=== PATIENT | female | born 1965 | race Caucasian/White ===

== ENCOUNTER → 2016-08-29 | Outpatient (CLI) | payer OTHER ==
--- NOTE | ~2016-08-29 | ECH ---
Transthoracic Echocardiography Report (TTE) Demographics Patient Name JOSEFA MONTES Date of Study 08/29/2016 Patient Number [id number] Visit Number [id number] Date of 1965 Room Number Accession Number [id number] Gender Female Age 50 year(s) Referring Shima David Story Analyst [place]ena Jeffery Physician RDCS Physician Interpreting Swathi GRAY Sampler Tester Physician [place] Supervising Ordering Physician Shima David MD, MD/MLP Nurse Stress Thermoplastic Technician Conclusions Contractility Score Summary Normal Left Ventricular contractility was noted. Summary Technically good exam. The estimated left ventricular ejection fraction is 60-65%. The left atrium is moderately dilated by LA volume index measurement. Informed consent was obtained, bubble study was done, there is no evidence for a PFO or ASD. The right atrium is mildly dilated. Trivial mitral regurgitation by color Doppler. No definitive evidence of mitral valve prolapse. Recommendation The patient will be given the results of this study by the physician who ordered the exam. Procedure Type of Study TTE procedure:Echo Complete SF. Procedure Date Date: 08/29/2016 Start: 12:57 PM Technical Quality: Good visualization Indications:Irregular Heartbeat. Additional Indications:MVP and visual disturbance per patient Appropriate Use Criteria: 9 Height: 66 inches Weight: 185 pounds BSA: 1.93 m Rhythm: Irregular HR: 56 bpm BP: 120/60 mmHg M-Mode/2D Measurements LV Diastolic Dimension: 4.97 cm LV Systolic Dimension: 3.41 cm LV Septum Diastolic: 0.6 cm LV PW Diastolic: 0.67 cm AO Root Dimension: 2.91 cm Cardiac Output: 3.28 l/min LA Dimension: 3.67 cm Cardiac Index: 1.7 l/min*m RV Diastolic Dimension: 3.71 cm LA volume index: 45 ml/m LVOT: 1.87 cm LVOT VTI: 21.34 cm RV Base: 43 cm LV Stroke volume: 58.58 ml RV Mid: 2.1 cm LV Stroke volume index: 30.35 ml/m TAPSE: 3 cm TDI-S': 13 cm/s Doppler Measurements AV Peak Velocity: 1.4 m/s MV Peak E-Wave: 0.82 m/s AV Peak Gradient: 7.84 mmHg MV Peak A-Wave: 0.71 m/s AV Mean Gradient: 3.18 mmHg MV E/A Ratio: 1.15 LVOT Peak Velocity: 1.01 m/s MV P1/2t: 58.9 msec AV Area (Continuity):2.05 cm MV Deceleration Time: 203.1 msec MV Area (PHT): 3.74 cm PV Peak Velocity: 1.22 m/s E' Septal Velocity: 0.11 m/s PV Peak Gradient: 5.92 mmHg E' Lateral Velocity: 0.13 m/s A' Septal Velocity: 0.11 m/s A' Lateral Velocity: 0.1 m/s RA Area: 18.16 cm Findings Left Ventricle Normal left ventricle size and function. Diastolic assessment reveals normal relaxation. Right Ventricle Normal right ventricle structure and function. Left Atrium The left atrium is moderately dilated by LA volume index measurement. Informed consent was obtained, bubble study was done, there is no evidence for a PFO or ASD. Right Atrium The right atrium is mildly dilated. Mitral Valve Normal mitral valve structure and function. Trivial mitral regurgitation by color Doppler. No definitive evidence of mitral valve prolapse. Aortic Valve Normal aortic valve structure and function. Tricuspid Valve Normal tricuspid valve structure and function. Trivial tricuspid regurgitation by color Doppler. Insufficient jet to calculate pulmonary pressures. Pulmonic Valve Normal pulmonic valve structure and function. Pericardial Effusion No evidence of pericardial effusion. Miscellaneous Visualized portions of the aortic root and ascending aorta appear normal in size. Pleural Effusion No evidence of pleural effusion. Contractility Score LV regional wall motion:(0-Non visualized 1-Normal 2-Hypokinesis 3-Akinesis 4-Dyskinesis 5-Aneurysm) Signature
== END | disposition home or self-care (01) ==
LOC: RAD.S 08-22 16:16 → CARD 08-25 09:00
DX: I49.9 Cardiac arrhythmia, unspecified (principal); I51.7 Cardiomegaly